=== PATIENT | female | born 1950 | race Caucasian/White ===

== ENCOUNTER 2016-10-09 13:23 | Inpatient (IN) | payer BC, MEDICAID ==
[~2016-10-09] VITALS: Ht 162.6 cm; Wt 136.0 kg
[~2016-10-09 13:23] MED LIST: ACET-1757 PO; ASPI-496 PO; CARV6.252 PO; CEFD300C2 PO; DOCU100C; DOXY100T PO; ERGO500017 PO; ESOM40CA PO; FENO48TA16; FURO20TA3 PO; GUAI10LI PO; HYDR-3241 PO; IPRA3AMP NPPB; IPRA3AMP18 NEB; LISI-167 PO; TRIA1TAB3 PO; ZOLP10TA PO
[2016-10-09] MEDS ORDERED: SODIUM CHLORIDE 0.9% 1,000ML IVBOLUS ONE (14:30)
[2016-10-09] MEDS ORDERED: SODIUM CHLORIDE FLUSH 10ML SYR IVF ONE (14:30)
[2016-10-09 15:12] LABS: HEMOGLOBIN 13.1 g/dL (11.7-16.4)
[2016-10-09 15:20] LABS: ASPARTATE AMINO TRANSFERASE 24 U/L (15-37); BLOOD UREA NITROGEN 14 mg/dL (7-18)
[2016-10-09 15:24] LABS: IS PT STATUS REG ER OR PRE ER? YES
[2016-10-09] MEDS ORDERED: ALBUTEROL/IPRATROPIUM 2.5MG/0.5MG, 3 ML NPPB ONE (16:00)
[2016-10-09] MEDS ORDERED: POTASSIUM CHLORIDE 20 MEQ TAB.ER.PRT PO ONE (16:00)
[2016-10-09] MEDS ORDERED: LEVOFLOXACIN/PMX 750MG/150ML 150 ML IV ONE (16:00)
[2016-10-09] MEDS ORDERED: POTASSIUM CHLORIDE 20 MEQ TAB.ER.PRT ONE (16:02)
[2016-10-09] MEDS ORDERED: LEVOFLOXACIN/PMX 750MG/150ML 150 ML ONE (16:02)
[2016-10-09] MEDS ORDERED: ONDANSETRON 2MG/ML, 2ML IVP PRN (17:00)
[2016-10-09] MEDS ORDERED: ACETAMINOPHEN 325 MG TABLET PO PRN (17:00)
[2016-10-09] MEDS ORDERED: ONDANSETRON ODT 4 MG PO PRN (17:00)
[2016-10-09] MEDS ORDERED: ALBUTEROL/IPRATROPIUM 2.5MG/0.5MG, 3 ML ONE (17:26)
[2016-10-09] MEDS ORDERED: HYDROcodone/APAP 5/325 TABLET PO PRN (17:30)
[2016-10-09] MEDS ORDERED: methylPREDNISolone SOD SUCC 125 MG/2 ML ONE (17:31)
[2016-10-09] MEDS ORDERED: CEFTRIAXONE PMX 1GM/50ML 50 ML ONE (17:32)
[2016-10-09] MEDS: CEFTRIAXONE PMX 1GM/50ML 50 ML IV SCH (17:44)
[2016-10-09] MEDS: methylPREDNISolone SOD SUCC 125 MG/2 ML IVPush SCH (17:44)
[2016-10-09] MEDS: SODIUM CHLORIDE 0.9% 1,000 ML IV SCH ×2 (17:45→20:04)
[2016-10-09] MEDS: ENOXAPARIN 40 MG/0.4 ML SQ SCH (17:47)
[2016-10-09] MEDS ORDERED: ALBUTEROL/IPRATROPIUM 2.5MG/0.5MG, 3 ML NPPB PRN (18:00)
[2016-10-09] MEDS: ALBUTEROL/IPRATROPIUM 2.5MG/0.5MG, 3 ML NPPB SCH ×2 (18:00→22:45)
[2016-10-09] MEDS: FAMOTIDINE 20 MG TABLET PO SCH (21:10)
[2016-10-09] MEDS: AZITHROMYCIN 500 MG in SODIUM CHLORIDE 0.9% 250 ML IV SCH (21:10)
[2016-10-09] MEDS: CARVEDILOL 6.25 MG TABLET PO SCH (21:10)
[2016-10-09] MEDS: GUAIFENESIN ER 600 MG TABLET PO SCH (21:10)
[2016-10-09 21:11] VITALS: BP 139/83
[2016-10-09] MEDS: LISINOPRIL 10 MG TABLET PO SCH (21:11)
[2016-10-09 21:58] VITALS: BP 139/83
[2016-10-09 23:41] LABS: RAPID INFLUENZA A Negative (Negative)
[2016-10-09 23:42] LABS: RAPID INFLUENZA B Negative (Negative)
[2016-10-10] MEDS: ZOLPIDEM 10MG TABLET PO PRN ×2 (01:04→23:42)
[2016-10-10] MEDS: methylPREDNISolone SOD SUCC 125 MG/2 ML IVPush SCH ×3 (01:04→16:39)
[2016-10-10 02:20] VITALS: BP 127/76
[2016-10-10 04:23] LABS: HEMOGLOBIN 13.3 g/dL (11.7-16.4)
[2016-10-10 04:38] LABS: BLOOD UREA NITROGEN 12 mg/dL (7-18)
[2016-10-10 04:41] LABS: ASPARTATE AMINO TRANSFERASE 18 U/L (15-37)
[2016-10-10] MEDS: ALBUTEROL/IPRATROPIUM 2.5MG/0.5MG, 3 ML NPPB SCH ×5 (06:00→22:33)
[2016-10-10 07:54] VITALS: BP 126/80
[2016-10-10] MEDS: LISINOPRIL 10 MG TABLET PO SCH ×2 (07:55→20:19)
[2016-10-10] MEDS: SODIUM CHLORIDE 0.9% 1,000 ML IV SCH (07:55)
[2016-10-10] MEDS: FAMOTIDINE 20 MG TABLET PO SCH ×2 (07:55→20:19)
[2016-10-10] MEDS: ASPIRIN 81 MG TABLET EC PO SCH (07:56)
[2016-10-10] MEDS: CARVEDILOL 6.25 MG TABLET PO SCH ×2 (07:56→20:18)
[2016-10-10] MEDS: GUAIFENESIN ER 600 MG TABLET PO SCH ×2 (07:57→20:19)
[2016-10-10] MEDS: GUAIFENESIN/COD200MG-20MG/10ML LIQUID PO PRN ×4 (08:43→20:43)
[2016-10-10 12:30] VITALS: BP 116/66
[2016-10-10] MEDS: CEFTRIAXONE PMX 1GM/50ML 50 ML IV SCH (16:39)
[2016-10-10 19:08] VITALS: BP 145/76
[2016-10-10] MEDS: ENOXAPARIN 40 MG/0.4 ML SQ SCH (20:20)
[2016-10-10] MEDS: AZITHROMYCIN 500 MG in SODIUM CHLORIDE 0.9% 250 ML IV SCH (20:43)
[2016-10-11 02:00] VITALS: BP 131/72
[2016-10-11] MEDS: methylPREDNISolone SOD SUCC 125 MG/2 ML IVPush SCH ×3 (02:22→15:56)
[2016-10-11] MEDS: ALBUTEROL/IPRATROPIUM 2.5MG/0.5MG, 3 ML NPPB SCH ×5 (06:25→22:24)
[2016-10-11 06:59] VITALS: BP 145/79
[2016-10-11] MEDS: GUAIFENESIN/COD200MG-20MG/10ML LIQUID PO PRN ×3 (07:08→22:56)
[2016-10-11] MEDS: LISINOPRIL 10 MG TABLET PO SCH ×2 (07:44→21:52)
[2016-10-11] MEDS: FAMOTIDINE 20 MG TABLET PO SCH ×2 (07:44→21:52)
[2016-10-11] MEDS: GUAIFENESIN ER 600 MG TABLET PO SCH ×2 (07:45→21:52)
[2016-10-11] MEDS: CARVEDILOL 6.25 MG TABLET PO SCH ×2 (07:45→21:52)
[2016-10-11] MEDS: ASPIRIN 81 MG TABLET EC PO SCH (07:45)
[2016-10-11 12:12] VITALS: BP 163/76
[2016-10-11] MEDS: CEFTRIAXONE PMX 1GM/50ML 50 ML IV SCH (15:56)
[2016-10-11 19:29] VITALS: BP 151/75
[2016-10-11] MEDS: AZITHROMYCIN 500 MG in SODIUM CHLORIDE 0.9% 250 ML IV SCH (21:51)
[2016-10-11] MEDS: ZOLPIDEM 10MG TABLET PO PRN (21:52)
[2016-10-11] MEDS: ENOXAPARIN 40 MG/0.4 ML SQ SCH (21:52)
[2016-10-12] MEDS: methylPREDNISolone SOD SUCC 125 MG/2 ML IVPush SCH ×3 (01:14→17:18)
[2016-10-12 01:20] VITALS: BP 133/74
[2016-10-12 07:02] VITALS: BP 153/86
[2016-10-12] MEDS: ALBUTEROL/IPRATROPIUM 2.5MG/0.5MG, 3 ML NPPB SCH ×5 (07:40→23:05)
[2016-10-12] MEDS: GUAIFENESIN/COD200MG-20MG/10ML LIQUID PO PRN ×2 (08:01→12:26)
[2016-10-12] MEDS: GUAIFENESIN ER 600 MG TABLET PO SCH ×2 (10:16→20:14)
[2016-10-12] MEDS: ASPIRIN 81 MG TABLET EC PO SCH (10:16)
[2016-10-12] MEDS: CARVEDILOL 6.25 MG TABLET PO SCH ×2 (10:16→20:14)
[2016-10-12] MEDS: FAMOTIDINE 20 MG TABLET PO SCH ×2 (10:17→20:13)
[2016-10-12] MEDS: LISINOPRIL 10 MG TABLET PO SCH ×2 (10:17→20:14)
[2016-10-12] MEDS ORDERED: CODEINE SULFATE 30 MG TABLET PO PRN (13:00)
[2016-10-12] MEDS ORDERED: IPRATROPIUM 0.5 MG/2.5 ML INHA NPPB PRN (13:00)
[2016-10-12] MEDS: LORazepam 1MG TABLET PO PRN ×2 (13:19→21:22)
[2016-10-12 13:20] VITALS: BP 160/79
[2016-10-12] MEDS: CEFTRIAXONE PMX 1GM/50ML 50 ML IV SCH (17:18)
[2016-10-12 19:41] VITALS: BP 154/72
[2016-10-12] MEDS: AZITHROMYCIN 500 MG in SODIUM CHLORIDE 0.9% 250 ML IV SCH (20:13)
[2016-10-12] MEDS: ENOXAPARIN 40 MG/0.4 ML SQ SCH (20:13)
[2016-10-13] MEDS: methylPREDNISolone SOD SUCC 125 MG/2 ML IVPush SCH ×3 (01:07→17:06)
[2016-10-13 01:31] VITALS: BP 133/81
[2016-10-13] MEDS: LORazepam 1MG TABLET PO PRN ×4 (03:39→21:29)
[2016-10-13] MEDS: ALBUTEROL/IPRATROPIUM 2.5MG/0.5MG, 3 ML NPPB SCH ×5 (06:45→22:15)
[2016-10-13 07:19] VITALS: BP 149/80
[2016-10-13] MEDS: GUAIFENESIN ER 600 MG TABLET PO SCH ×2 (09:38→21:30)
[2016-10-13] MEDS: ASPIRIN 81 MG TABLET EC PO SCH (09:38)
[2016-10-13] MEDS: FAMOTIDINE 20 MG TABLET PO SCH ×2 (09:39→21:30)
[2016-10-13] MEDS: LISINOPRIL 10 MG TABLET PO SCH ×2 (09:39→21:30)
[2016-10-13] MEDS: CARVEDILOL 6.25 MG TABLET PO SCH ×2 (09:39→21:30)
[2016-10-13 13:14] VITALS: BP 156/80
[2016-10-13] MEDS: CEFTRIAXONE PMX 1GM/50ML 50 ML IV SCH (17:06)
[2016-10-13 20:09] VITALS: BP 154/85
[2016-10-13] MEDS: ENOXAPARIN 40 MG/0.4 ML SQ SCH (21:29)
[2016-10-13] MEDS: AZITHROMYCIN 500 MG in SODIUM CHLORIDE 0.9% 250 ML IV SCH (21:29)
[2016-10-14] MEDS: GUAIFENESIN/COD200MG-20MG/10ML LIQUID PO PRN ×2 (00:29→13:54)
[2016-10-14] MEDS: methylPREDNISolone SOD SUCC 125 MG/2 ML IVPush SCH ×2 (01:12→11:26)
[2016-10-14 03:15] VITALS: BP 151/88
[2016-10-14] MEDS: LORazepam 1MG TABLET PO PRN ×2 (04:31→11:26)
[2016-10-14 07:00] VITALS: BP 156/94
[2016-10-14] MEDS: ALBUTEROL/IPRATROPIUM 2.5MG/0.5MG, 3 ML NPPB SCH ×2 (07:35→11:45)
[2016-10-14] MEDS: LISINOPRIL 10 MG TABLET PO SCH (11:25)
[2016-10-14] MEDS: FAMOTIDINE 20 MG TABLET PO SCH (11:25)
[2016-10-14] MEDS ORDERED: HYDR-3240 PO (11:26)
[2016-10-14] MEDS: GUAIFENESIN ER 600 MG TABLET PO SCH (11:26)
[2016-10-14] MEDS: CARVEDILOL 6.25 MG TABLET PO SCH (11:26)
[2016-10-14] MEDS ORDERED: PRED20TA PO (11:26)
[2016-10-14] MEDS: ASPIRIN 81 MG TABLET EC PO SCH (11:26)
[2016-10-14] MEDS ORDERED: LORA-446 PO (11:26)
[2016-10-14] MEDS ORDERED: CEFD300C2 PO (11:34)
[2016-10-14] MEDS ORDERED: FLU VACC QS2016-17 (36MOS+)UP/PF 0.5 ML IM-VACC ONE (12:30)
== END 2016-10-14 14:20 | disposition home or self-care (01) | DRG 189 ==
LOC: ED 16:06 → EDIP 16:57 → 3NW 19:54
PROVIDERS: ADMIT Internal Medicine; ATTEND Family Medicine
DX: J96.01 Acute respiratory failure with hypoxia (principal); J18.1 Lobar pneumonia, unspecified organism; J44.0 Chronic obstructive pulmonary disease with (acute) lower respiratory infection; E44.0 Moderate protein-calorie malnutrition; J44.1 Chronic obstructive pulmonary disease with (acute) exacerbation; I10 Essential (primary) hypertension; Z85.3 Personal history of malignant neoplasm of breast; G47.33 Obstructive sleep apnea (adult) (pediatric); G89.29 Other chronic pain; M54.9 Dorsalgia, unspecified; Z82.49 Family history of ischemic heart disease and other diseases of the circulatory system; Z80.9 Family history of malignant neoplasm, unspecified; Z87.891 Personal history of nicotine dependence; Z88.6 Allergy status to analgesic agent; Z88.5 Allergy status to narcotic agent; E87.6 Hypokalemia; K21.9 Gastro-esophageal reflux disease without esophagitis; E55.9 Vitamin D deficiency, unspecified; Z99.81 Dependence on supplemental oxygen; I89.0 Lymphedema, not elsewhere classified
CPT/HCPCS: 36415; 71010; 80053; 83605; 83735; 83880; 84484; 85025; 87040; 87070; 87205; 87400; 90686; 93005; 94640; 96361; 96365; J0456; J0696; J1650; J1956; J7620; J2930; J7030; J7050; J7512

== ENCOUNTER 2016-10-28 09:05 | Inpatient (IN) | payer BC ==
[~2016-10-28] VITALS: Ht 162.6 cm; Wt 126.8 kg
[~2016-10-28 09:05] MED LIST changes: +HYDR-3240 PO; +LORA-446 PO; +PRED20TA PO
[2016-10-28] MEDS ORDERED: SODIUM CHLORIDE 0.9% 1,000 ML IV ONE (09:40)
[2016-10-28] MEDS ORDERED: SODIUM CHLORIDE FLUSH 10ML SYR IVF ONE (10:00)
[2016-10-28 11:10] LABS: ASPARTATE AMINO TRANSFERASE 12 U/L (15-37); BLOOD UREA NITROGEN 13 mg/dL (7-18)
[2016-10-28 12:11] LABS: HEMOGLOBIN 13.5 g/dL (11.7-16.4)
[2016-10-28] MEDS ORDERED: predniSONE 50MG TABLET PO ONE (13:30)
[2016-10-28] MEDS ORDERED: IMMUNE GLOBULIN IVPB ONE (13:30)
[2016-10-28] MEDS ORDERED: EVACUATED CONTAINER IVPB ONE (13:30)
[2016-10-28] MEDS ORDERED: ONDANSETRON 2MG/ML, 2ML IVP PRN (14:30)
[2016-10-28] MEDS ORDERED: ACETAMINOPHEN 325 MG TABLET PO PRN (14:30)
[2016-10-28] MEDS ORDERED: LORazepam 2 MG/ML, 1ML IVPush PRN (14:30)
[2016-10-28] MEDS ORDERED: HYDROcodone/APAP 5/325 TABLET PO PRN (14:30)
[2016-10-28] MEDS ORDERED: ENALAPRILAT 1.25 MG/ML, 2ML IVPush PRN (14:30)
[2016-10-28] MEDS ORDERED: IMMUNE GLOBULIN IV ONE (15:00)
[2016-10-28] MEDS ORDERED: ALBUTEROL SULFATE 2.5 MG/3 ML NPPB PRN (16:00)
[2016-10-28 17:45] VITALS: BP 137/76
[2016-10-28 17:53] VITALS: BP 137/76
[2016-10-28] MEDS: ALBUTEROL SULFATE 2.5 MG/3 ML NPPB SCH (19:13)
[2016-10-28 19:16] VITALS: BP 118/88
[2016-10-28] MEDS: LISINOPRIL 10 MG TABLET PO SCH (20:42)
[2016-10-28] MEDS: CARVEDILOL 6.25 MG TABLET PO SCH (20:43)
[2016-10-28] MEDS: ZOLPIDEM 10MG TABLET PO PRN (23:14)
[2016-10-29 02:33] VITALS: BP 118/67
[2016-10-29 05:10] LABS: HEMOGLOBIN 12.2 g/dL (11.7-16.4)
[2016-10-29 05:28] LABS: ASPARTATE AMINO TRANSFERASE 12 U/L (15-37); BLOOD UREA NITROGEN 13 mg/dL (7-18)
[2016-10-29] MEDS: ALBUTEROL SULFATE 2.5 MG/3 ML NPPB SCH ×2 (07:04→19:34)
[2016-10-29] MEDS ORDERED: OMEPRAZOLE 20 MG CAPSULE.DR PO SCH (07:30)
[2016-10-29 07:47] VITALS: BP 123/73
[2016-10-29] MEDS ORDERED: predniSONE 50MG TABLET PO SCH (08:00)
[2016-10-29] MEDS: FUROSEMIDE 20 MG TABLET PO SCH (08:42)
[2016-10-29] MEDS: TRIAMTERENE-HCTZ 37.5/25 MG TABLET PO SCH (08:42)
[2016-10-29] MEDS: CARVEDILOL 6.25 MG TABLET PO SCH ×2 (08:42→20:39)
[2016-10-29] MEDS: OMEPRAZOLE 20 MG CAPSULE.DR PO SCH (08:42)
[2016-10-29] MEDS: LISINOPRIL 10 MG TABLET PO SCH ×2 (08:42→20:38)
[2016-10-29 14:00] VITALS: BP 116/65
[2016-10-29 20:36] VITALS: BP 121/64
[2016-10-29] MEDS: ZOLPIDEM 10MG TABLET PO PRN (22:21)
[2016-10-30 03:14] VITALS: BP 110/67
[2016-10-30 07:42] VITALS: BP 115/68
[2016-10-30] MEDS: OMEPRAZOLE 20 MG CAPSULE.DR PO SCH (07:54)
[2016-10-30] MEDS: TRIAMTERENE-HCTZ 37.5/25 MG TABLET PO SCH (07:54)
[2016-10-30] MEDS: CARVEDILOL 6.25 MG TABLET PO SCH (07:54)
[2016-10-30] MEDS: LISINOPRIL 10 MG TABLET PO SCH (07:54)
[2016-10-30] MEDS: FUROSEMIDE 20 MG TABLET PO SCH (07:55)
[2016-10-30] MEDS ORDERED: predniSONE 50MG TABLET PO SCH (08:00)
[2016-10-30] MEDS: ALBUTEROL SULFATE 2.5 MG/3 ML NPPB SCH (09:27)
[2016-10-30] MEDS ORDERED: PRED20TA PO (11:03)
[2016-10-31] MEDS ORDERED: ERGOCALCIFEROL 50,000 UNIT CAPSULE PO SCH (09:00)
== END 2016-10-30 12:26 | disposition home or self-care (01) | DRG 813 ==
LOC: ED 10:57 → EDIP 13:11 → 3NW 17:37
PROVIDERS: ADMIT Internal Medicine; ATTEND Internal Medicine
PROC: 30233S1 Transfusion of Nonautologous Globulin into Peripheral Vein, Percutaneous Approach (ICD-10-PCS; principal; 2016-10-28)
DX: D69.3 Immune thrombocytopenic purpura (principal); J96.10 Chronic respiratory failure, unspecified whether with hypoxia or hypercapnia; E44.1 Mild protein-calorie malnutrition; Z68.42 Body mass index [BMI] 45.0-49.9, adult; E55.9 Vitamin D deficiency, unspecified; E66.01 Morbid (severe) obesity due to excess calories; G47.33 Obstructive sleep apnea (adult) (pediatric); G89.29 Other chronic pain; M54.9 Dorsalgia, unspecified; I10 Essential (primary) hypertension; Z82.49 Family history of ischemic heart disease and other diseases of the circulatory system; Z85.3 Personal history of malignant neoplasm of breast; Z87.01 Personal history of pneumonia (recurrent); Z87.891 Personal history of nicotine dependence; Z99.81 Dependence on supplemental oxygen; Z80.9 Family history of malignant neoplasm, unspecified; Z90.49 Acquired absence of other specified parts of digestive tract; Z88.6 Allergy status to analgesic agent; Z88.5 Allergy status to narcotic agent; Z88.8 Allergy status to other drugs, medicaments and biological substances; Z79.82 Long term (current) use of aspirin; Z79.899 Other long term (current) drug therapy
CPT/HCPCS: 36415; 80053; 85025; 85610; 85730; 93005; 93970; 94640; 96365; 96366; J1459; J7613; J7512

== ENCOUNTER 2018-02-13 14:57 | Emergency (ER) | payer MEDICARE, MEDICAID ==
[~2018-02-13] VITALS: Ht 165.1 cm; Wt 156.0 kg
[~2018-02-13 14:57] MED LIST changes: -CEFD300C2 PO; +CEFD300C37 PO; +DOCU-180; -DOCU100C
[2018-02-13 15:09] VITALS: BP 156/84
== END 2018-02-13 16:19 | disposition home or self-care (01) ==
LOC: ED 15:00
DX: K08.89 Other specified disorders of teeth and supporting structures (principal); K02.9 Dental caries, unspecified; I10 Essential (primary) hypertension; Z87.891 Personal history of nicotine dependence
CPT/HCPCS: 99283

== ENCOUNTER → 2018-02-25 | Outpatient (CLI) | payer MEDICARE, MEDICAID ==
[~2018-02-25] MED LIST changes: -IPRA3AMP NPPB; +IPRA3AMP30 NPPB
== END | disposition home or self-care (01) ==
LOC: CFH 07:44
PROVIDERS: ATTEND Internal Medicine
DX: J44.9 Chronic obstructive pulmonary disease, unspecified (principal); J98.6 Disorders of diaphragm; J98.4 Other disorders of lung
CPT/HCPCS: 71250

== ENCOUNTER 2018-10-14 11:49 | Inpatient (IN) | payer MEDICARE, MEDICAID ==
[~2018-10-14] VITALS: Ht 162.6 cm; Wt 147.6 kg
[2018-10-14] MEDS ORDERED: HYDROmorphone 1 MG/ML, 1ML ONE (15:18)
[2018-10-14] MEDS ORDERED: HYDROmorphone 1 MG/ML, 1ML IM ONE (15:30)
--- NOTE | 2018-10-14 16:00 | NUR ---
Ultrasound at bedside.
[2018-10-14 16:01] LABS: CULTURE INDICATED? YES; MICROSCOPIC INDICATED
[2018-10-14 18:17] LABS: MEAN CORPUSCULAR HGB CONC 33.5 g/dL (32.4-35.8); MEAN CORPUSCULAR VOLUME 86.6 fL (80-100); MEAN PLATELET VOLUME 8.9 fL (7.4-10.4); PLATELET COUNT 166 x10^3/uL (130-400); RED BLOOD COUNT 4.39 x10^6/uL (3.82-5.3); RED CELL DISTRIBUTION WIDTH 14.5 % (9.6-15.2)
[2018-10-14 18:24] LABS: MD YES
[2018-10-14] MEDS ORDERED: CEFTRIAXONE PMX 1GM/50ML 50 ML IVPB ONE (18:30)
[2018-10-14] MEDS ORDERED: SODIUM CHLORIDE FLUSH 10ML SYR IVF ONE (18:30)
[2018-10-14 18:52] LABS: BAND#(MANUAL) 1.73 x10^3/uL; BANDS%(MANUAL) 8 % (0-7); LYMPH#(MANUAL) 1.51 x10^3/uL (1-3.4); LYMPHS% (MANUAL) 7 % (22-44); MONOS#(MANUAL) 0.86 x10^3/uL (0.3-2.7); MONOS% (MANUAL) 4 % (2-9); SEGS% (MANUAL) 81 % (42-75)
[2018-10-14 18:53] LABS: <PLATELET ESTIMATE> ADEQUATE; <PLT MORPHOLOGY> NORMAL PLT MORPH; <RBC MORPHOLOGY> NORMAL
[2018-10-14] MEDS ORDERED: CEFTRIAXONE PMX 1GM/50ML 50 ML ONE (18:54)
--- NOTE | 2018-10-14 18:59 | NUR ---
PIV STARTED AND SECOND SET OF BLOOD CULTURES DRAWN. ROCEPHIN AND NS BOLUS STARTED. PT RESTING WITH NO COMPLAINTS.
[2018-10-14] MEDS ORDERED: SODIUM CHLORIDE 0.9% 1,000ML IVBOLUS ONE (19:00)
--- NOTE | 2018-10-14 19:11 | NUR ---
Report to Noc RN
--- NOTE | 2018-10-14 19:16 | NUR ---
REPORT FROM FAITH STEPHENSON. ADMITTING MD AT BEDSIDE
[2018-10-14] MEDS ORDERED: THYR30TA PO (19:45)
[2018-10-14] MEDS ORDERED: TEMA30CA PO (19:45)
[2018-10-14] MEDS ORDERED: ALBU18HF INH (19:45)
[2018-10-14] MEDS ORDERED: LABETALOL 5MG/ML, 20ML IVPush PRN (20:00)
[2018-10-14] MEDS ORDERED: hydrALAzine 20 MG/ML, 1ML IVPush PRN (20:00)
[2018-10-14] MEDS ORDERED: BISACODYL 10 MG SUPP PR PRN (20:00)
[2018-10-14] MEDS ORDERED: POLYETHYLENE GLYCOL 17 GM PACKET PO PRN (20:00)
[2018-10-14] MEDS ORDERED: DOCUSATE 100 MG CAPSULE PO PRN (20:00)
[2018-10-14] MEDS ORDERED: ONDANSETRON ODT 4 MG PO PRN (20:00)
[2018-10-14] MEDS ORDERED: ENOXAPARIN 30 MG/0.3 ML SQ SCH (20:00)
[2018-10-14] MEDS ORDERED: ONDANSETRON 2MG/ML, 2ML IVPush PRN (20:00)
[2018-10-14] MEDS ORDERED: ACETAMINOPHEN 325 MG TABLET PO PRN (20:00)
[2018-10-14 20:01] VITALS: BP 136/82
[2018-10-14] MEDS ORDERED: ALBUTEROL/IPRATROPIUM 2.5MG/0.5MG, 3 ML ONE (21:17)
[2018-10-14] MEDS: SODIUM CHLORIDE 0.9% 1,000 ML IV SCH (21:46)
[2018-10-14] MEDS: HYDROcodone/APAP 5/325 TABLET PO PRN (21:48)
[2018-10-14] MEDS ORDERED: ALBUTEROL/IPRATROPIUM 2.5MG/0.5MG, 3 ML NPPB PRN (22:00)
[2018-10-15 01:29] VITALS: BP 105/53
[2018-10-15] MEDS: HYDROcodone/APAP 5/325 TABLET PO PRN ×3 (01:44→20:51)
[2018-10-15] MEDS: SODIUM CHLORIDE 0.9% 1,000 ML IV SCH ×2 (05:28→10:11)
[2018-10-15 05:59] LABS: MEAN CORPUSCULAR HEMOGLOBIN 29.1 pg (27.0-34.8); MEAN CORPUSCULAR HGB CONC 33.2 g/dL (32.4-35.8); MEAN CORPUSCULAR VOLUME 87.7 fL (80-100); MEAN PLATELET VOLUME 8.7 fL (7.4-10.4); PLATELET COUNT 162 x10^3/uL (130-400); RED BLOOD COUNT 3.88 x10^6/uL (3.82-5.3); RED CELL DISTRIBUTION WIDTH 14.5 % (9.6-15.2)
[2018-10-15 06:57] LABS: MD YES
[2018-10-15 06:59] LABS: BAND#(MANUAL) 0.34 x10^3/uL; BANDS%(MANUAL) 2 % (0-7); LYMPH#(MANUAL) 2.03 x10^3/uL (1-3.4); LYMPHS% (MANUAL) 12 % (22-44); MONOS#(MANUAL) 0.17 x10^3/uL (0.3-2.7); MONOS% (MANUAL) 1 % (2-9); REACTIVE LYMPHS # (MANUAL) 0.17 x10^3/uL (0-0); REACTIVE LYMPHS % (MANUAL) 1 % (0-0); SEGS% (MANUAL) 84 % (42-75)
[2018-10-15 07:00] LABS: <PLATELET ESTIMATE> ADEQUATE; <PLT MORPHOLOGY> NORMAL PLT MORPH; ANISOCYTOSIS 1+
[2018-10-15 07:25] VITALS: BP 107/57
[2018-10-15 07:35] LABS: ANION GAP 7 mmol/L (5-15); CALCIUM 7.3 mg/dL (8.5-10.1); CHLORIDE 106 mmol/L (98-107); CREATININE 0.87 mg/dL (0.55-1.02)
[2018-10-15 10:09] VITALS: BP 127/66
[2018-10-15] MEDS: RIVAROXABAN 15 MG TABLET PO SCH ×2 (10:11→17:18)
[2018-10-15] MEDS: CARVEDILOL 6.25 MG TABLET PO SCH ×2 (10:15→20:39)
[2018-10-15] MEDS: FUROSEMIDE 20 MG TABLET PO SCH (10:15)
[2018-10-15] MEDS: TRIAMTERENE-HCTZ 37.5/25 MG TABLET PO SCH (10:16)
[2018-10-15 13:59] VITALS: BP 131/77
[2018-10-15] MEDS: DEXTROSE 5% IV SCH ×2 (18:33→21:52)
[2018-10-15] MEDS: PENICILLIN GK IV SCH ×2 (18:33→21:52)
[2018-10-15] MEDS ORDERED: CEFTRIAXONE PMX 1GM/50ML 50 ML IV SCH (19:00)
[2018-10-15 19:40] VITALS: BP 133/69
[2018-10-16 01:43] VITALS: BP 142/77
[2018-10-16] MEDS: DEXTROSE 5% IV SCH ×4 (01:45→15:57)
[2018-10-16] MEDS: PENICILLIN GK IV SCH ×4 (01:45→15:57)
[2018-10-16] MEDS ORDERED: THYROID 30 MG TABLET PO SCH (06:00)
[2018-10-16 07:25] LABS: BASOPHILS % (AUTO) 0 % (0-1); EOSINOPHILS # (AUTO) 0.06 x10^3/uL (0-0.4); EOSINOPHILS % (AUTO) 0 % (1-7); LYMPHOCYTES # (AUTO) 1.45 x10^3/uL (1-3.4); LYMPHOCYTES % (AUTO) 11 % (22-44); MD NO; MEAN CORPUSCULAR HEMOGLOBIN 29.1 pg (27.0-34.8); MEAN CORPUSCULAR HGB CONC 33.4 g/dL (32.4-35.8); MEAN CORPUSCULAR VOLUME 87.2 fL (80-100); MONOCYTES # (AUTO) 0.65 x10^3/uL (0.2-0.8); MONOCYTES % (AUTO) 5 % (2-9); NEUTROPHILS # (AUTO) 11.05 x10^3/uL (1.8-6.8); NEUTROPHILS % (AUTO) 84 % (42-75); PLATELET COUNT 163 x10^3/uL (130-400); RED BLOOD COUNT 3.83 x10^6/uL (3.82-5.3); RED CELL DISTRIBUTION WIDTH 14.2 % (9.6-15.2)
[2018-10-16 07:35] LABS: ANION GAP 7 mmol/L (5-15); CALCIUM 8.1 mg/dL (8.5-10.1); CHLORIDE 101 mmol/L (98-107); CREATININE 0.66 mg/dL (0.55-1.02)
[2018-10-16 07:47] VITALS: BP 125/75
[2018-10-16 08:00] LABS: INTERNATIONAL NORMALIZED RATIO 1.05 (0.93-1.1)
[2018-10-16] MEDS: CARVEDILOL 6.25 MG TABLET PO SCH (08:42)
[2018-10-16] MEDS: RIVAROXABAN 15 MG TABLET PO SCH ×2 (08:42→17:59)
[2018-10-16] MEDS: FUROSEMIDE 20 MG TABLET PO SCH (08:42)
[2018-10-16] MEDS: TRIAMTERENE-HCTZ 37.5/25 MG TABLET PO SCH (08:42)
[2018-10-16] MEDS ORDERED: RIVA20TA PO (13:32)
[2018-10-16] MEDS ORDERED: RIVA15TA PO (13:32)
[2018-10-16] MEDS ORDERED: PENI500T PO (13:32)
[2018-10-16 14:25] VITALS: BP 135/72
== END 2018-10-16 19:18 | disposition home or self-care (01) | DRG 872 ==
LOC: ED 18:58 → EDIP 19:04 → ED 19:42 → 4WST 21:04
PROVIDERS: ADMIT Student in an Organized Health Care Education/Training Program; ATTEND Student in an Organized Health Care Education/Training Program
PROC: 5A09357 Assistance with Respiratory Ventilation, Less than 24 Consecutive Hours, Continuous Positive Airway Pressure (ICD-10-PCS; principal; 2018-10-14)
PROC: 5A09357 Assistance with Respiratory Ventilation, Less than 24 Consecutive Hours, Continuous Positive Airway Pressure (ICD-10-PCS; 2018-10-15)
DX: A41.9 Sepsis, unspecified organism (principal); I82.441 Acute embolism and thrombosis of right tibial vein; D68.51 Activated protein C resistance; Z68.43 Body mass index [BMI] 50.0-59.9, adult; J96.10 Chronic respiratory failure, unspecified whether with hypoxia or hypercapnia; N10 Acute pyelonephritis; E66.2 Morbid (severe) obesity with alveolar hypoventilation; E03.9 Hypothyroidism, unspecified; G89.29 Other chronic pain; I11.0 Hypertensive heart disease with heart failure; J44.9 Chronic obstructive pulmonary disease, unspecified; M51.36 Other intervertebral disc degeneration, lumbar region; N93.9 Abnormal uterine and vaginal bleeding, unspecified; Z85.3 Personal history of malignant neoplasm of breast; Z86.718 Personal history of other venous thrombosis and embolism; Z87.891 Personal history of nicotine dependence; Z99.81 Dependence on supplemental oxygen; Z88.6 Allergy status to analgesic agent; Z88.8 Allergy status to other drugs, medicaments and biological substances; Z82.49 Family history of ischemic heart disease and other diseases of the circulatory system; Z80.0 Family history of malignant neoplasm of digestive organs
CPT/HCPCS: 36415; 72110; 76830; 80048; 81001; 83605; 84145; 84443; 85025; 85610; 87040; 87086; 87147; 93005; 94640; 94660; 96372; 96374; G0378; J0696; J1170; J1650; J2540; J7030

== ENCOUNTER 2019-02-10 07:39 | Outpatient (CLI) | payer MEDICARE, MEDICAID ==
[~2019-02-10 07:39] MED LIST changes: +ALBU18HF INH; +PENI500T PO; +RIVA15TA PO; +RIVA20TA PO; +TEMA30CA PO; +THYR30TA PO
[2019-02-10] MEDS ORDERED: CALC-126 PO (08:46)
[2019-02-10] MEDS ORDERED: ENOX100S5 SQ (09:00)
[2019-02-10] MEDS ORDERED: TRAZ50TA66 PO (09:00)
[2019-02-10] MEDS ORDERED: FERR-46 PO (09:00)
[2019-02-10] MEDS ORDERED: ASCO500T8 PO (09:00)
[2019-02-10] MEDS ORDERED: FURO20TA3 PO (09:00)
[2019-02-10 09:16] LABS: ALANINE AMINOTRANSFERASE 22 U/L (12-78); ALBUMIN 3.4 g/dL (3.4-5.0); ANION GAP 6 mmol/L (5-15); CALCIUM 8.8 mg/dL (8.5-10.1); CHLORIDE 108 mmol/L (98-107)
[2019-02-10 09:19] LABS: ALKALINE PHOSPHATASE 76 U/L (45-117); BILIRUBIN,TOTAL 0.2 mg/dL (0.2-1.0); CREATININE 0.76 mg/dL (0.55-1.02); TOTAL PROTEIN 6.9 g/dL (6.4-8.2)
== END 2019-02-10 23:59 | disposition home or self-care (01) ==
LOC: STAR 07:39
PROVIDERS: ATTEND Internal Medicine Gastroenterology
DX: Z01.818 Encounter for other preprocedural examination (principal); R19.4 Change in bowel habit; R15.9 Full incontinence of feces; G47.30 Sleep apnea, unspecified; E66.3 Overweight; Z86.010 Personal history of colon polyps
CPT/HCPCS: 36415; 80053; 93005

== ENCOUNTER 2019-02-24 05:44 | Day surgery (SDC) | payer MEDICARE, MEDICAID ==
[~2019-02-24] VITALS: Ht 162.6 cm; Wt 138.6 kg
[~2019-02-24 05:44] MED LIST changes: +ASCO500T8 PO; +CALC-126 PO; +ENOX100S5 SQ; +FERR-46 PO; +TRAZ50TA66 PO
[2019-02-24 06:33] VITALS: BP 160/85
[2019-02-24] MEDS ORDERED: LACTATED RINGERS 1,000 ML IV SCH (06:38)
[2019-02-24] MEDS ORDERED: PROPOFOL 10 MG/ML, 50ML ONE (15:44)
[2019-03-17] MEDS ORDERED: ACET-1600 PO (15:38)
[2019-03-17] MEDS ORDERED: IPRA3AMP30 NEB (15:38)
[2019-03-21] MEDS ORDERED: ENOX300V SQ (17:47)
[2019-03-21] MEDS ORDERED: OXYC-306 PO (17:48)
[2019-03-21] MEDS ORDERED: ONDA4TAB7 PO (17:48)
== END 2019-02-24 10:00 | disposition home or self-care (01) ==
LOC: OUT 05:44
PROVIDERS: ATTEND Internal Medicine Gastroenterology
DX: D12.3 Benign neoplasm of transverse colon (principal); K57.30 Diverticulosis of large intestine without perforation or abscess without bleeding; K52.9 Noninfective gastroenteritis and colitis, unspecified; E66.01 Morbid (severe) obesity due to excess calories; J44.9 Chronic obstructive pulmonary disease, unspecified; I10 Essential (primary) hypertension; G47.33 Obstructive sleep apnea (adult) (pediatric); Z68.43 Body mass index [BMI] 50.0-59.9, adult; Z86.010 Personal history of colon polyps; Z85.3 Personal history of malignant neoplasm of breast; Z86.718 Personal history of other venous thrombosis and embolism; Z99.81 Dependence on supplemental oxygen
CPT/HCPCS: 45380; 45385; 88305; J2704; J7120

== ENCOUNTER 2019-03-03 12:44 | Inpatient (IN) | payer MEDICAID, MEDICARE ==
[~2019-03-03] VITALS: Ht 162.6 cm; Wt 146.5 kg
[2019-03-06 13:12] VITALS: BP 146/79
== END 2019-03-06 15:53 | disposition home or self-care (01) | DRG 760 ==
LOC: ED 17:09 → EDIP 17:59 → 4EST 19:53
PROVIDERS: ADMIT Family Medicine; ATTEND Family Medicine
PROC: 30233N1 Transfusion of Nonautologous Red Blood Cells into Peripheral Vein, Percutaneous Approach (ICD-10-PCS; 2019-03-04)
PROC: 5A09357 Assistance with Respiratory Ventilation, Less than 24 Consecutive Hours, Continuous Positive Airway Pressure (ICD-10-PCS; principal; 2019-03-05)
PROC: 5A09357 Assistance with Respiratory Ventilation, Less than 24 Consecutive Hours, Continuous Positive Airway Pressure (ICD-10-PCS; 2019-03-06)
DX: N93.8 Other specified abnormal uterine and vaginal bleeding (principal); J96.21 Acute and chronic respiratory failure with hypoxia; Z68.43 Body mass index [BMI] 50.0-59.9, adult; E46 Unspecified protein-calorie malnutrition; E66.2 Morbid (severe) obesity with alveolar hypoventilation; J44.9 Chronic obstructive pulmonary disease, unspecified; D50.0 Iron deficiency anemia secondary to blood loss (chronic); R10.30 Lower abdominal pain, unspecified; Z90.49 Acquired absence of other specified parts of digestive tract; Z86.718 Personal history of other venous thrombosis and embolism; Z85.3 Personal history of malignant neoplasm of breast; Z88.2 Allergy status to sulfonamides; Z88.8 Allergy status to other drugs, medicaments and biological substances; Z87.891 Personal history of nicotine dependence; Z82.49 Family history of ischemic heart disease and other diseases of the circulatory system; Z80.0 Family history of malignant neoplasm of digestive organs; Z79.51 Long term (current) use of inhaled steroids; Z99.81 Dependence on supplemental oxygen; Z79.01 Long term (current) use of anticoagulants; Z86.010 Personal history of colon polyps; Z86.2 Personal history of diseases of the blood and blood-forming organs and certain disorders involving the immune mechanism; Z92.3 Personal history of irradiation; Z90.11 Acquired absence of right breast and nipple; Z98.1 Arthrodesis status
CPT/HCPCS: 36415; 36430; 76830; 80048; 82040; 85014; 85018; 85025; 85610; 85730; 86850; 86900; 86923; 87324; 87493; 93005; 93970; 94640; 96360; 99285; G0378; J7613; J2270; J7030; P9016

== ENCOUNTER 2019-06-24 10:14 | Inpatient (IN) | payer MEDICARE, MEDICAID ==
[~2019-06-24] VITALS: Ht 160 cm; Wt 143.6 kg
[~2019-06-24 10:14] MED LIST changes: +ACET-1600 PO; -ACET-1757 PO; +ACET-2065 PO; +ENOX300V SQ; +IPRA3AMP30 NEB; +ONDA4TAB7 PO; +OXYC-306 PO
--- NOTE | 2019-06-24 10:25 | NUR ---
BIB [facility], PT WITH FALL. FELL THROUGH A PLANK ON HER DECK WITH ONE LEG, NOW WITH LLE PAIN. RA PER [facility] 85%. PT DENIES SOB, CP, DIZZINESS PRIOR TO FALL. PT DOES HAVE SWELLING AND PAIN IN L KNEE AREA PT TO BP, CONT PULSE OX.
[2019-06-24] MEDS ORDERED: MORPHINE SULFATE 4 MG/ML, 1ML IVPush ONE (11:30)
[2019-06-24] MEDS ORDERED: MORPHINE SULFATE 4 MG/ML, 1ML ONE (11:35)
--- NOTE | 2019-06-24 11:39 | NUR ---
PT MEDICATED WITH ADDITIONAL PAIN MEDS PER MD ORDER, PT NOW ON WAY TO IMAGING
--- NOTE | 2019-06-24 12:25 | NUR ---
PT RESTING COMFORTABLY ON GURENY IN RM, NAD NOTED, SIG OTHER AT BEDSIDE. PT AWAITING CT SCAN
--- NOTE | 2019-06-24 13:06 | NUR ---
LUNCH BREAK NOTE: PT IN CT.
--- NOTE | 2019-06-24 14:02 | NUR ---
PT RESTING ON LIZ CARUSO NOTED, TO BE ADMITTED, AWAITING BEDPLACEMENT
[2019-06-24] MEDS ORDERED: NEOSPORIN OINT. PKT 1 PACKET ONE (14:05)
--- NOTE | 2019-06-24 14:18 | NUR ---
REPORT GIVEN TO RECIEVING RN, AWAITING TRANSPORT
[2019-06-24] MEDS ORDERED: ONDANSETRON 2MG/ML, 2ML IVPush PRN (14:30)
[2019-06-24] MEDS ORDERED: ONDANSETRON ODT 4 MG PO PRN (14:30)
[2019-06-24] MEDS ORDERED: ACETAMINOPHEN 325 MG TABLET PO PRN (14:30)
[2019-06-24] MEDS ORDERED: BISACODYL 10 MG SUPP PR PRN (14:30)
[2019-06-24] MEDS ORDERED: DOCUSATE 100 MG CAPSULE PO PRN (14:30)
[2019-06-24] MEDS ORDERED: ENALAPRILAT 1.25 MG/ML, 2ML IVPush PRN (14:30)
[2019-06-24] MEDS ORDERED: ACETAMINOPHEN 500 MG TABLET PO PRN (14:30)
[2019-06-24] MEDS ORDERED: POLYETHYLENE GLYCOL 17 GM PACKET PO PRN (14:30)
[2019-06-24] MEDS ORDERED: hydrALAzine 20 MG/ML, 1ML IVPush PRN (14:30)
[2019-06-24 15:11] VITALS: BP 84/54
[2019-06-24 15:16] VITALS: BP 130/72
[2019-06-24] MEDS ORDERED: OXYcodone IR 5MG TABLET ONE (15:21)
[2019-06-24] MEDS: OXYcodone IR 5MG TABLET PO PRN ×3 (15:24→23:47)
[2019-06-24] MEDS ORDERED: ENOXAPARIN 150 MG/ML SQ SCH (15:30)
[2019-06-24] MEDS ORDERED: ALBUTEROL/IPRATROPIUM 2.5MG/0.5MG, 3 ML NPPB PRN (16:00)
[2019-06-24] MEDS ORDERED: ALBUTEROL/IPRATROPIUM 2.5MG/0.5MG, 3 ML NEB SCH (16:00)
[2019-06-24 17:18] LABS: BASOPHILS # (AUTO) 0.11 x10^3/uL (0-0.1); BASOPHILS % (AUTO) 1 % (0-1); EOSINOPHILS # (AUTO) 0.02 x10^3/uL (0-0.4); EOSINOPHILS % (AUTO) 0 % (1-7); LYMPHOCYTES # (AUTO) 2.18 x10^3/uL (1-3.4); LYMPHOCYTES % (AUTO) 27 % (22-44); MD NO; MEAN CORPUSCULAR HEMOGLOBIN 28.3 pg (27.0-34.8); MEAN CORPUSCULAR HGB CONC 31.7 g/dL (32.4-35.8); MEAN CORPUSCULAR VOLUME 89.1 fL (80-100); MEAN PLATELET VOLUME 8.6 fL (7.4-10.4); MONOCYTES # (AUTO) 0.48 x10^3/uL (0.2-0.8); MONOCYTES % (AUTO) 6 % (2-9); NEUTROPHILS # (AUTO) 5.26 x10^3/uL (1.8-6.8); NEUTROPHILS % (AUTO) 65 % (42-75); PLATELET COUNT 201 x10^3/uL (130-400); RED BLOOD COUNT 4.21 x10^6/uL (3.82-5.3); RED CELL DISTRIBUTION WIDTH 15.8 % (9.6-15.2)
[2019-06-24 17:38] LABS: INTERNATIONAL NORMALIZED RATIO 1.01 (0.93-1.1); PROTHROMBIN TIME 10.6 Seconds (9.6-11.5)
[2019-06-24] MEDS: morphine SULFATE 10 MG/ML, 1ML IVPush PRN (17:52)
[2019-06-24] MEDS: LISINOPRIL 10 MG TABLET PO SCH ×2 (19:00→19:35)
[2019-06-24 19:36] VITALS: BP 119/56
[2019-06-24 21:45] LABS: BASOPHILS # (AUTO) 0.05 x10^3/uL (0-0.1); BASOPHILS % (AUTO) 1 % (0-1); EOSINOPHILS # (AUTO) 0.01 x10^3/uL (0-0.4); EOSINOPHILS % (AUTO) 0 % (1-7); LYMPHOCYTES # (AUTO) 1.73 x10^3/uL (1-3.4); LYMPHOCYTES % (AUTO) 25 % (22-44); MD NO; MEAN CORPUSCULAR HEMOGLOBIN 28.6 pg (27.0-34.8); MEAN CORPUSCULAR VOLUME 89.4 fL (80-100); MEAN PLATELET VOLUME 8.3 fL (7.4-10.4); MONOCYTES # (AUTO) 0.48 x10^3/uL (0.2-0.8); MONOCYTES % (AUTO) 7 % (2-9); NEUTROPHILS # (AUTO) 4.79 x10^3/uL (1.8-6.8); NEUTROPHILS % (AUTO) 68 % (42-75); PLATELET COUNT 202 x10^3/uL (130-400); RED CELL DISTRIBUTION WIDTH 15.9 % (9.6-15.2)
[2019-06-25 02:13] VITALS: BP 116/54
[2019-06-25] MEDS: morphine SULFATE 10 MG/ML, 1ML IVPush PRN ×2 (02:22→07:51)
[2019-06-25] MEDS: OXYcodone IR 5MG TABLET PO PRN ×4 (05:31→21:07)
[2019-06-25 05:56] LABS: MEAN CORPUSCULAR HEMOGLOBIN 28.5 pg (27.0-34.8); MEAN CORPUSCULAR HGB CONC 31.7 g/dL (32.4-35.8); MEAN CORPUSCULAR VOLUME 89.9 fL (80-100); MEAN PLATELET VOLUME 9.6 fL (7.4-10.4); PLATELET COUNT 184 x10^3/uL (130-400); RED BLOOD COUNT 3.82 x10^6/uL (3.82-5.3); RED CELL DISTRIBUTION WIDTH 15.9 % (9.6-15.2)
[2019-06-25] MEDS ORDERED: ACETAMINOPHEN 325 MG TABLET PO PRN (06:00)
[2019-06-25] MEDS ORDERED: ENOXAPARIN 150 MG/ML SQ SCH (06:00)
[2019-06-25 06:15] LABS: BASOPHILS # (AUTO) 0.05 x10^3/uL (0-0.1); BASOPHILS % (AUTO) 1 % (0-1); EOSINOPHILS # (AUTO) 0.04 x10^3/uL (0-0.4); EOSINOPHILS % (AUTO) 1 % (1-7); LYMPHOCYTES # (AUTO) 2.48 x10^3/uL (1-3.4); LYMPHOCYTES % (AUTO) 31 % (22-44); MD SCAN; MONOCYTES # (AUTO) 0.52 x10^3/uL (0.2-0.8); MONOCYTES % (AUTO) 6 % (2-9); NEUTROPHILS # (AUTO) 5.05 x10^3/uL (1.8-6.8); NEUTROPHILS % (AUTO) 62 % (42-75)
[2019-06-25 07:23] VITALS: BP 112/51
[2019-06-25] MEDS: LISINOPRIL 10 MG TABLET PO SCH ×2 (07:39→21:07)
[2019-06-25] MEDS: FERROUS SULFATE 325 MG TABLET PO SCH (07:39)
[2019-06-25 08:42] LABS: ALBUMIN 2.9 g/dL (3.4-5.0); ANION GAP 5 mmol/L (5-15); CALCIUM 8.1 mg/dL (8.5-10.1); CHLORIDE 107 mmol/L (98-107); CREATININE 1.13 mg/dL (0.55-1.02)
[2019-06-25] MEDS ORDERED: SENNA/DOCUSATE TABLET PO PRN (11:00)
[2019-06-25] MEDS: ACETAMINOPHEN 325 MG TABLET PO SCH ×3 (11:45→23:00)
[2019-06-25 13:48] VITALS: BP 134/65
[2019-06-25 19:40] VITALS: BP 119/71
[2019-06-26] MEDS: ACETAMINOPHEN 325 MG TABLET PO SCH ×4 (01:24→21:08)
[2019-06-26] MEDS: ENOXAPARIN 150 MG/ML SQ SCH ×3 (01:24→21:11)
[2019-06-26 01:37] VITALS: BP 117/70
[2019-06-26] MEDS: OXYcodone IR 5MG TABLET PO PRN ×3 (02:10→21:11)
[2019-06-26 04:45] LABS: ANION GAP 5 mmol/L (5-15); CALCIUM 7.9 mg/dL (8.5-10.1); CHLORIDE 105 mmol/L (98-107); CREATININE 1.45 mg/dL (0.55-1.02)
[2019-06-26 04:47] LABS: CREATINE KINASE, TOTAL 22 U/L (26-192)
[2019-06-26] MEDS ORDERED: ENOXAPARIN 150 MG/ML SQ SCH (05:00)
[2019-06-26 07:55] VITALS: BP 86/57
[2019-06-26] MEDS: FERROUS SULFATE 325 MG TABLET PO SCH (08:22)
[2019-06-26 13:59] VITALS: BP 92/59
[2019-06-26 20:07] VITALS: BP 97/51
[2019-06-26] MEDS: LISINOPRIL 10 MG TABLET PO SCH (21:00)
[2019-06-27] MEDS: ACETAMINOPHEN 325 MG TABLET PO SCH ×4 (02:00→19:56)
[2019-06-27 02:30] VITALS: BP 92/49
[2019-06-27 04:43] LABS: ANION GAP 6 mmol/L (5-15); CALCIUM 7.5 mg/dL (8.5-10.1); CHLORIDE 102 mmol/L (98-107); CREATININE 1.44 mg/dL (0.55-1.02)
[2019-06-27 08:21] VITALS: BP 86/51
[2019-06-27] MEDS: FERROUS SULFATE 325 MG TABLET PO SCH (08:43)
[2019-06-27] MEDS: ENOXAPARIN 150 MG/ML SQ SCH ×2 (08:43→19:56)
[2019-06-27 13:25] VITALS: BP 101/53
[2019-06-27] MEDS: OXYcodone IR 5MG TABLET PO PRN ×3 (15:12→22:21)
[2019-06-27 19:17] VITALS: BP 122/77
[2019-06-27] MEDS: LISINOPRIL 10 MG TABLET PO SCH (19:56)
[2019-06-28] MEDS: ACETAMINOPHEN 325 MG TABLET PO SCH (01:52)
[2019-06-28 01:55] VITALS: BP 107/52
[2019-06-28 05:11] LABS: ANION GAP 5 mmol/L (5-15); CALCIUM 7.9 mg/dL (8.5-10.1); CHLORIDE 105 mmol/L (98-107)
[2019-06-28 05:13] LABS: CREATININE 0.92 mg/dL (0.55-1.02)
[2019-06-28] MEDS ORDERED: ACETAMINOPHEN 325 MG TABLET PO PRN (06:00)
[2019-06-28 07:19] VITALS: BP 91/49
[2019-06-28] MEDS: FERROUS SULFATE 325 MG TABLET PO SCH (08:53)
[2019-06-28] MEDS: ENOXAPARIN 150 MG/ML SQ SCH (08:53)
[2019-06-28] MEDS: OXYcodone IR 5MG TABLET PO PRN ×2 (08:54→12:53)
[2019-06-28] MEDS ORDERED: LISI-167 PO (12:15)
[2019-06-28] MEDS ORDERED: FERR-51 PO (12:15)
[2019-06-28 12:41] VITALS: BP 109/55
== END 2019-06-28 15:08 | DRG 565 ==
LOC: ED 12:43 → EDIP 13:48 → 3N 15:02 → 4NW 16:05
PROVIDERS: ADMIT Family Medicine; ATTEND Family Medicine
DX: M25.462 Effusion, left knee (principal); I82.4Z1 Acute embolism and thrombosis of unspecified deep veins of right distal lower extremity; N17.9 Acute kidney failure, unspecified; J96.11 Chronic respiratory failure with hypoxia; Z68.43 Body mass index [BMI] 50.0-59.9, adult; I82.502 Chronic embolism and thrombosis of unspecified deep veins of left lower extremity; S80.02XA Contusion of left knee, initial encounter; W18.39XA Other fall on same level, initial encounter; E66.01 Morbid (severe) obesity due to excess calories; G47.33 Obstructive sleep apnea (adult) (pediatric); G89.11 Acute pain due to trauma; I10 Essential (primary) hypertension; J44.9 Chronic obstructive pulmonary disease, unspecified; M17.10 Unilateral primary osteoarthritis, unspecified knee; R58 Hemorrhage, not elsewhere classified; Z72.0 Tobacco use; Y93.89 Activity, other specified; Y92.89 Other specified places as the place of occurrence of the external cause; Y99.8 Other external cause status; Z80.8 Family history of malignant neoplasm of other organs or systems; Z82.49 Family history of ischemic heart disease and other diseases of the circulatory system; Z79.01 Long term (current) use of anticoagulants; Z85.3 Personal history of malignant neoplasm of breast; Z85.42 Personal history of malignant neoplasm of other parts of uterus; Z85.43 Personal history of malignant neoplasm of ovary; Z90.710 Acquired absence of both cervix and uterus; Z88.6 Allergy status to analgesic agent
CPT/HCPCS: 36415; 80048; 82040; 82274; 82550; 85025; 85610; 85730; 93005; 96374; G0378; J1650; J2405; J7620; Q0162; J2270